=== PATIENT | female | born 1965 | race Two or more races ===

== ENCOUNTER → 2020-06-28 | Emergency (ER) | payer OTHER ==
[~2020-06-28] VITALS: Ht 160 cm; Wt 78.0 kg
[~2020-06-28] MED LIST: DUI500 PO
== END | disposition home or self-care (01) ==
LOC: ER 09:11
DX: T81.31XA Disruption of external operation (surgical) wound, not elsewhere classified, initial encounter (principal); T81.41XA Infection following a procedure, superficial incisional surgical site, initial encounter; B95.61 Methicillin susceptible Staphylococcus aureus infection as the cause of diseases classified elsewhere